=== PATIENT | female | born 2005 | race Caucasian/White ===

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

== ENCOUNTER 2025-03-07 23:37 | Emergency (ER) | payer OTHER ==
[~2025-03-07] VITALS: Ht 170.2 cm; Wt 70.4 kg
[~2025-03-07 23:37] MED LIST changes: -ISOVUE-370 76% 100ML VIAL ONE
[2025-03-07 23:44] VITALS: BP 101/64; TEMP 97.2; O2SAT 97
[2025-03-08 00:47] LABS: KETONE, URINE AUTO RFX NEGATIVE (NEGATIVE); MUCUS, URINE RFX SMALL (NEGATIVE); NITRITE, URINE AUTO RFX NEGATIVE (NEGATIVE); RBC, URINE AUTO RFX 49 /HPF (0-3); SQUAM EPITHELIAL CELL UR AURFX 3 /HPF (0-6)
[2025-03-08 00:56] LABS: LEUKOCYTE ESTERASE UR AUTO RFX 2+ (NEGATIVE); WBC, URINE AUTO RFX TNTC /HPF (0-3)
[2025-03-08] MEDS ORDERED: NITR100C3 PO (01:36)
[2025-03-08] MEDS ORDERED: ONDA-282 PO (01:36)
[2025-03-08] MEDS: NITROFURANTOIN 100 MG CAP PO ONE (01:41)
== END 2025-03-08 01:43 | disposition home or self-care (01) ==
LOC: M ED 23:37
DX: N39.0 Urinary tract infection, site not specified (principal); Z79.899 Other long term (current) drug therapy